=== PATIENT | female | born 1965 | race Caucasian/White ===

== ENCOUNTER 2018-06-08 14:22 | Emergency (ER) | payer OTHER ==
[2018-06-08] MEDS ORDERED: FAMOTIDINE 20 MG/2 ML VIAL IV ONE (15:25)
[2018-06-08] MEDS ORDERED: NA CHLORIDE 0.9% 1,000 ML ONE (15:25)
[2018-06-08] MEDS ORDERED: ONDANSETRON 4 MG/2 ML VIAL ONE (15:25)
[2018-06-08 15:33] LABS: Absolute Lymphocytes (CBC) 1.9 K/uL (0.7-4.9); Absolute Monocytes 0.9 K/uL (0.1-1.3); Absolute Neutrophil 17.7 K/uL (1.8-8.0); Basophils % 0.3 % (0-1.3); Eosinophils % 0.1 % (0-4.4); Hematocrit 41.2 % (36.0-45.0); Lymphocytes % 9.3 % (15.3-44.8); MCH 28.3 pg (27.0-35.0); MCV 86.5 fL (80-100); MPV 8.3 fL (7.6-11.3); Monocytes % 4.2 % (3.3-12.3); RBC Red Blood Cell Count 4.77 M/uL (3.86-4.86)
[2018-06-08 15:45] LABS: Albumin 3.8 g/dL (3.4-5.0); Bilirubin Direct 0.1 mg/dL (0-0.2); Bilirubin Total 0.4 mg/dL (0.2-1.0); Magnesium 2.4 mg/dL (1.8-2.4); Potassium 3.7 mmol/L (3.5-5.1); Protein, Total 7.7 g/dL (6.4-8.2)
[2018-06-08 16:15] LABS: Urine Bacteria >50 /HPF (<20); Urine Culture Reflex Order REFLEXED; Urine Mucus 2+ /HPF (NONE SEEN)
[2018-06-08 16:16] LABS: Urine Blood 1+ (NEG); Urine Glucose NEGATIVE (NEG); Urine Protein NEGATIVE (NEG); Urine Specific Gravity 1.015 (1.005-1.030); Urine pH 7.5 (5.0-7.0)
[2018-06-08 16:56] LABS: Blood Morphology Comment NOT SEEN (NOT SEEN); Platelet Estimate ADEQ
[2018-06-08] MEDS ORDERED: CEFTRIAXONE/SWI 1gm 2 GM/20 ML SYR ONE (17:11)
--- NOTE | 2018-06-08 18:00 | RAD REPORT ---
EXAM DESCRIPTION: CT - Abdomen Pelvis Wo Contrast - 06/08/2018 5:49 pm CLINICAL HISTORY: Abdominal pain. diarrhea. colitis;Abd pain COMPARISON: No comparisons TECHNIQUE: CT imaging of the abdomen and pelvis was performed without contrast. Solid organ, bowel a nd vascular assessment is limited due to lack of IV and oral contrast. All CT scans are performed using dose optimization technique as appropriate and may include automated exposure control or mA/KV adjustment according to patient size. FINDINGS: The lower lung rollins are clear. The liver, spleen, pancreas, adrenal glands and right kidney are within normal limits for a limited n on-contrast examination.4 mm calculus is present inferior left kidney without hydronephrosis. No bowel obstruction, free air, free fluid or abscess. Scattered colonic diverticulosis. The appendix is normal. The osseous structures are within normal limits.4 cm left ovarian cyst is seen. IMPRESSION: Small nonobstructing 4 mm inferior left renal calculus. Otherwise, negative study for ac brenda or worrisome abnormality. A limited non-contrast examination was performed as detailed.
--- NOTE | 2018-06-08 18:38 | ER ---
Nurse's Notes [facility] Name: Wendi Rojas Age: 52 yrs Sex: Female : 1965 Arrival Date: 06/08/2018 Time: 14:25 Bed 17 Private MD: Grant Mcclure T Diagnosis: Dizziness;Acute Vomiting and Diarrhea;Acute UTI Presentation: 06/08 14:28 Presenting complaint: Patient states: diarrhea since Mon, dizziness and vomiting sv started today at 0600. Pt saw Dr Mcclure and was dx w/ UTI, sent home with Bactrim and Promethazine. Transition of care: patient was not received from another setting of care. Onset of symptoms was June 06, 2018. Care prior to arrival: None. 14:28 Method Of Arrival: Wheelchair sv 14:28 Acuity: LOAN 3 sv Historical: - Allergies: 14:39 PENICILLINS; sv - PMHx: 14:39 Hypertension; Arthritis; sv - PSHx: 14:39 left knee; Tonsillectomy; sv - Immunization history:: Adult Immunizations up to date. - Social history:: Smoking status: Patient/guardian denies using tobacco. - Ebola Screening: : No symptoms or risks identified at this time. - Family history:: not pertinent. - Hospitalizations: : No recent hospitalization is reported. Screenin:32 Abuse screen: Denies threats or abuse. Nutritional screening: No deficits noted. la1 Tuberculosis screening: No symptoms or risk factors identified. Fall Risk None identified. Assessment: 15:33 General: Appears in no apparent distress. Behavior is calm, cooperative. Pain: Denies la1 pain. Neuro: Level of Consciousness is awake, alert, obeys commands, Oriented to person, place, time, situation, Open Tenter Operator are equal bilaterally Moves all extremities. Full function Gait is steady, Speech is normal, Facial symmetry appears normal, Pupils are PERRLA. Cardiovascular: Capillary refill < 3 seconds Patient's skin is warm and dry. Respiratory: Airway is patent Respiratory effort is even, unlabored, Respiratory pattern is regular, symmetrical, Breath sounds are clear bilaterally. GI: Reports nausea, vomiting. : No signs and/or symptoms were reported regarding the genitourinary system. 17:00 Reassessment: Patient appears in no apparent distress at this time. Patient and/or jl7 family updated on plan of care and expected duration. Pain level reassessed. Patient is alert, oriented x 3, equal unlabored respirations, skin warm/dry/pink. 18:00 Reassessment: Patient and/or family updated on plan of care and expected duration. Pain jl7 level reassessed. Patient is alert, oriented x 3, equal unlabored respirations, skin warm/dry/pink. 19:15 Reassessment: Upon discharge, pt sitting upright in bed, fully AA\T\Ox4, reports sr5 dizziness persists with position change. Nausea greatly improved. Equal unlabored resp, room air, skin warm/dry/nc, SR on monitor, IV site dc'd intact, bandage applied. steady gait to for dc. Patient educated on safety concerning ambulation and medication admin. Family at bedside. Vital Signs: 14:39 BP 178 / 105; Pulse 90; Resp 20; Temp 98.6; Pulse Ox 97% ; Weight 99.79 kg; Height 5 sv ft. 4 in. (162.56 cm); Pain 0/10; 16:11 BP 139 / 105; Pulse 91; Resp 16; Pulse Ox 100% on R/A; la1 17:56 BP 138 / 77; Pulse 90; Resp 20; Pulse Ox 100% on R/A; mh5 19:00 BP 134 / 76; Pulse 87; Resp 16; Temp 98.6; Pulse Ox 98% on R/A; Pain 0/10; sr5 14:39 Body Mass Index 37.76 (99.79 kg, 162.56 cm) sv Vitals: 19:00 Cardiac Rhythm Assessment Regular Sinus rhythm. sr5 ED Course: 14:25 Patient arrived in ED. sb2 14:25 Grant Mcclure MD is Private Physician. sb2 14:28 Arm band placed on right wrist. Patient placed in an exam room, on a stretcher. sv 14:32 Anish Kitchen RN is Primary Nurse. la1 14:37 Suleiman Guadalupe MD is Attending Physician. wa 14:38 Triage completed. sv 14:46 EKG done, by ag equipment field service technician. reviewed by Suleiman Guadalupe MD. sm3 15:32 No provider procedures requiring assistance completed. Inserted saline lock: 22 gauge la1 in left antecubital area, using aseptic technique. Blood collected. 15:33 Bed in low position. Call light in reach. Side rails up X 1. Pulse ox on. NIBP on. la1 15:57 Notified ED physician of a critical lab result(s). WBC-20.6. la1 16:00 Urine --Ancillary (enter results) Sent. 5 16:00 Urine Dipstick--Ancillary (enter results) Sent. mh5 16:00 Urine Microscopic Only Sent. mh5 17:[address] mw3 17:49 CT Abd/Pelvis - Without Cont In Process Unspecified. EDMS 19:00 IV discontinued, intact, bleeding controlled, No redness/swelling at site. Pressure sr5 dressing applied. Administered Medications: 15:30 Drug: NS 0.9% 1000 ml Route: IV; Rate: 1000 ml; Site: left antecubital; la1 16:11 Follow up: IV Status: Completed infusion la1 15:31 Drug: Pepcid 20 mg Route: IVP; Site: left antecubital; la1 16:11 Follow up: Response: No adverse reaction la1 15:31 Drug: Zofran 4 mg Route: IVP; Site: left antecubital; la1 16:11 Follow up: Response: No adverse reaction la1 18:22 Drug: Rocephin - (cefTRIAXone) 2 grams {Note: Administered IVP per protocol.} Route: jl7 IVPB; Infused Over: 30 mins; Site: left antecubital; 18:28 Follow up: IV Status: Completed infusion jl7 Outcome: 18:37 Discharge ordered by . ne 19:00 Discharged to home via wheelchair, with family. sr5 19:00 Condition: good 19:00 Discharge instructions given to patient, Instructed on discharge instructions, follow up and referral plans. medication usage, safety practices, Demonstrated understanding of instructions, follow-up care, medications, Prescriptions given X 2. 19:14 Patient left the ED. [facility] Addendum: 06/12/2018 07:46 Addendum: Culture Results: Positive urine culture. Bacteria is resistant to, has i w intermediate sensitivity, or is not tested against prescribed antibiotics. Report given to WHIT for further evaluation and then to fire extinguisher technician for follow up with patient. Phone call Attempt #1 pt still having urinary symptoms, has follow up appt with Dr. Mcclure on Monday Prescription called-in to pharmacy of choice. Macrobid 100 mg PO BID X 10 days, #20, no refills, called in to [facility]. Signatures: Dispatcher [employer] Samaria Quezada, RN RN Belinda Trammell RN RN iw Anish Kitchen RN RN la1 Americo Browning RN RN sr5 Catrachita Bull 5 Kun Jamil RN RN jl7 Suleiman Guadalupe MD MD wa Billeau, Sheri sb2 Lindsay Michelle 3 Saskia Bocanegra 3 Corrections: (The following items were deleted from the chart) 12:02 07:46 Addendum: Culture Results: Positive urine culture. No further action required. iw Bacteria sensitive to prescribed antibiotic. iw
--- NOTE | 2018-06-08 18:38 | EDPHYS ---
Physician Documentation [facility] Name: Wendi Rojas Age: 52 yrs Sex: Female : 1965 Arrival Date: 06/08/2018 Time: 14:25 Bed 17 Private MD: Grant Mcclure T ED Physician Suleiman Guadalupe HPI: 06/08 18:24 This 52 yrs old Female presents to ER via Wheelchair with complaints of wa Dizziness. 18:24 The patient presents to the emergency department with nausea, vomiting, diarrhea. wa Onset: The symptoms/episode began/occurred 3 day(s) ago, diagnosed with UTI. on bactrim DS. states dizziness today. described as room spinning as well as feeling lightheaded. Possible causes: unknown. The symptoms are aggravated by nothing. The symptoms are alleviated by phenergan, partially. called in today by her PMD. Associated signs and symptoms: Pertinent positives: diarrhea, nausea, vomiting, Pertinent negatives: abdominal pain, fever, hematuria, vaginal discharge. Severity of symptoms: At their worst the symptoms were moderate in the emergency department the symptoms have improved moderately. The patient has not experienced similar symptoms in the past. The patient has been recently seen by a physician: the patient's primary care provider. Historical: - Allergies: 14:39 PENICILLINS; sv - PMHx: 14:39 Hypertension; Arthritis; sv - PSHx: 14:39 left knee; Tonsillectomy; sv - Immunization history:: Adult Immunizations up to date. - Social history:: Smoking status: Patient/guardian denies using tobacco. - Ebola Screening: : No symptoms or risks identified at this time. - Family history:: not pertinent. - Hospitalizations: : No recent hospitalization is reported. ROS: 18:28 Constitutional: Negative for fever, chills, and weight loss, Eyes: Negative for injury, wa pain, redness, and discharge, ENT: Negative for injury, pain, and discharge, Neck: Negative for injury, pain, and swelling, Cardiovascular: Negative for chest pain, palpitations, and edema, Respiratory: Negative for shortness of breath, cough, wheezing, and pleuritic chest pain, Abdomen/GI: Negative for abdominal pain, nausea, vomiting, diarrhea, and constipation, Back: Negative for injury and pain, : Negative for injury, bleeding, discharge, and swelling, MS/Extremity: Negative for injury and deformity, Skin: Negative for injury, rash, and discoloration, Psych: Negative for depression, anxiety, suicide ideation, homicidal ideation, and hallucinations. 18:28 Abdomen/GI: Positive for nausea and vomiting, vomiting, diarrhea, Negative for abdominal pain. 18:28 Neuro: Positive for dizziness, Negative for altered mental status, loss of consciousness, syncope. 18:28 All other systems are negative. Exam: 18:30 Constitutional: This is a well developed, well nourished patient who is awake, alert, wa and in no acute distress. Head/Face: Normocephalic, atraumatic. Eyes: Pupils equal round and reactive to light, extra-ocular motions intact. Lids and lashes normal. Conjunctiva and sclera are non-icteric and not injected. Cornea within normal limits. Periorbital areas with no swelling, redness, or edema. ENT: Nares patent. No nasal discharge, no septal abnormalities noted. Tympanic membranes are normal and external auditory canals are clear. Oropharynx with no redness, swelling, or masses, exudates, or evidence of obstruction, uvula midline. Mucous membranes moist. Neck: Trachea midline, no thyromegaly or masses palpated, and no cervical lymphadenopathy. Supple, full range of motion without nuchal rigidity, or vertebral point tenderness. No Meningismus. Cardiovascular: Regular rate and rhythm with a normal S1 and S2. No gallops, murmurs, or rubs. Normal PMI, no JVD. No pulse deficits. Respiratory: Lungs have equal breath sounds bilaterally, clear to auscultation and percussion. No rales, rhonchi or wheezes noted. No increased work of breathing, no retractions or nasal flaring. Abdomen/GI: Soft, non-tender, with normal bowel sounds. No distension or tympany. No guarding or rebound. No evidence of tenderness throughout. Back: No spinal tenderness. No costovertebral tenderness. Full range of motion. Skin: Warm, dry with normal turgor. Normal color with no rashes, no lesions, and no evidence of cellulitis. MS/ Extremity: Pulses equal, no cyanosis. Neurovascular intact. Full, normal range of motion. Psych: Awake, alert, with orientation to person, place and time. Behavior, mood, and affect are within normal limits. 18:30 Neuro: Orientation: is normal, Mentation: is normal, Memory: is normal, Cranial nerves: grossly normal, Cerebellar function: is grossly normal, is grossly normal based on the patient's age, normal finger to nose testing, heel to grant testing is normal, able to perform alternating rapid hand movements. Vital Signs: 14:39 BP 178 / 105; Pulse 90; Resp 20; Temp 98.6; Pulse Ox 97% ; Weight 99.79 kg; Height 5 sv ft. 4 in. (162.56 cm); Pain 0/10; 16:11 BP 139 / 105; Pulse 91; Resp 16; Pulse Ox 100% on R/A; la1 17:56 BP 138 / 77; Pulse 90; Resp 20; Pulse Ox 100% on R/A; mh5 19:00 BP 134 / 76; Pulse 87; Resp 16; Temp 98.6; Pulse Ox 98% on R/A; Pain 0/10; sr5 14:39 Body Mass Index 37.76 (99.79 kg, 162.56 cm) sv MDM: 14:37 Patient medically screened. ks 18:31 Differential diagnosis: viral gastroenteritis, gastroenteritis, UTI? vertigo? no wa nystagmus. nml cerebellar exam. Data reviewed: vital signs, nurses notes, lab test result(s), radiologic studies. Test interpretation: by ED physician or midlevel provider: UA noted for pyuria consistent with UTI. noted leukocytosis. Response to treatment: the patient's symptoms have markedly improved after treatment. ED course: abx given. pt offered admit for obs. stated felt much better and wanted to go home. will d/c with meds and close f/u. ambulatory without deficit at time of d/c. 06/08 15:10 Order name: Basic Metabolic Panel; Complete Time: 17: ks 06/08 15:10 Order name: CBC with Diff; Complete Time: : ks 06/08 15:10 Order name: LFT's; Complete Time: :06/08 15:10 Order name: Magnesium; Complete Time: 17: ks 06/08 15:10 Order name: Urine Microscopic Only; Complete Time: 17: ks 06/08 15:43 Order name: Urine Dipstick--Ancillary (enter results); Complete Time: 17: mb4 06/08 15:43 Order name: Urine --Ancillary (enter results); Complete Time: 17:04 mb4 06/08 15:56 Order name: Manual Differential; Complete Time: 17:03 EDMS 06/08 16:16 Order name: Urine Culture EDMN 06/08 17:36 Order name: CT Abd/Pelvis - Without Cont; Complete Time: 18:16 ks 06/08 15:10 Order name: Urine Test (obtain specimen); Complete Time: 15: ks 06/08 15:10 Order name: Cardiac monitoring; Complete Time: 15: ks 06/08 15:10 Order name: IV Saline Lock; Complete Time: 15:06/08 15:10 Order name: Labs collected and sent; Complete Time: ks 06/08 15:10 Order name: O2 Sat Monitoring; Complete Time: ks 06/08 15:10 Order name: Urine Dipstick-Ancillary (obtain specimen); Complete Time: : ks 06/08 17:30 Order name: EKG Electrocardiogram EDMS Administered Medications: 15:30 Drug: NS 0.9% 1000 ml Route: IV; Rate: 1000 ml; Site: left antecubital; la1 16:11 Follow up: IV Status: Completed infusion la1 15:31 Drug: Pepcid 20 mg Route: IVP; Site: left antecubital; la1 16:11 Follow up: Response: No adverse reaction la1 15:31 Drug: Zofran 4 mg Route: IVP; Site: left antecubital; la1 16:11 Follow up: Response: No adverse reaction la1 18:22 Drug: Rocephin - (cefTRIAXone) 2 grams {Note: Administered IVP per protocol.} Route: jl7 IVPB; Infused Over: 30 mins; Site: left antecubital; 18:28 Follow up: IV Status: Completed infusion jl7 Disposition: 06/08/18 18:37 Discharged to Home. Impression: Dizziness, Acute Vomiting and Diarrhea, Acute UTI. - Condition is Stable. - Discharge Instructions: Nausea and Vomiting, Adult, [id number], Urinary Tract Infection, Adult, [id number], Diarrhea, Adult, [id number], Dizziness, [id number]. - Prescriptions for Keflex 500 mg Oral Capsule - take 1 capsule by ORAL route every 8 hours for 7 days; 21 capsule. Zofran 4 mg Oral Tablet - take 1 tablet by ORAL route every 12 hours As needed; 20 tablet. - Medication Reconciliation Form, Thank You Letter, Antibiotic Education, Prescription Opioid Use form. - Follow up: Private Physician; When: 1 - 2 days; Reason: Re-evaluation by your physician. - Problem is new. - Symptoms have improved. - Notes: take the medicines as prescribed. return here for worsening concerns immediately. otherwise see your doctor within the next 72 hours for further evaluation to ensure proper resolution of your illness Signatures: Dispatcher [employer] EDMS Samaria Zaldivar, CAROLINA RN Anish Kitchen RN RN la1 Catrachita Bull 5 Kun Jamil RN RN jl7 Suleiman Guadalupe MD MD wa Corrections: (The following items were deleted from the chart) 19:14 18:37 06/08/2018 18:37 Discharged to Home. Impression: Dizziness; Acute Vomiting and mh5 Diarrhea; Acute UTI. Condition is Stable. Forms are Medication Reconciliation Form, Thank You Letter, Antibiotic Education, Prescription Opioid Use. Follow up: Private Physician; When: 1 - 2 days; Reason: Re-evaluation by your physician. Problem is new. Symptoms have improved. wa
--- NOTE | 2018-06-09 08:34 | EKG ---
Test Date: 2018-06-08 Test Time: 14:37:58 Scheduler Maintenance: COLTON MEASUREMENT RESULTS: Intervals: Rate: 81 VT: 114 QRSD: 104 QT: 380 QTc: 441 Mason: P: VT: 114 QRS: 120 T: 134 INTERPRETIVE STATEMENTS: Normal sinus rhythm Left posterior fascicular block Abnormal ECG No previous ECG available for comparison Electronically Signed On 06-09-18 08:33:45 CDT by Andrew Velazco
== END 2018-06-08 19:14 | disposition home or self-care (01) ==
LOC: ER 14:22
DX: N39.0 Urinary tract infection, site not specified (principal); R42 Dizziness and giddiness; R19.7 Diarrhea, unspecified; R11.2 Nausea with vomiting, unspecified; Z88.0 Allergy status to penicillin; I10 Essential (primary) hypertension; M19.90 Unspecified osteoarthritis, unspecified site
CPT/HCPCS: 36415; 74176; 80048; 80076; 81003; 81015; 81025; 83735; 85025; 87077; 87086; 87088; 87186; 93005; 96361; 96374; 96375; 99285; J0696; J2405; J7030

== ENCOUNTER 2024-01-23 15:11 | Emergency (ER) | payer BC, OTHER ==
[2024-01-23] MEDS ORDERED: ALBUTEROL 2.5 MG/3 ML NEB SOL ONE (15:43)
[2024-01-23] MEDS ORDERED: IPRATROPIUM BROM 0.5MG/2.5ML ONE (15:43)
--- NOTE | 2024-01-23 16:05 | RAD REPORT ---
EXAM DESCRIPTION: RAD - Chest Single View - 01/23/2024 3:58 pm CLINICAL HISTORY: Dyspnea;Chest pain Chest pain. COMPARISON: <Comparisons> FINDINGS: Portable technique limits examination quality. The lungs are grossly clear. The heart is normal in size. No displaced fractures. IMPRESSION: No acute intrathoracic process suspected.
[2024-01-23] MEDS ORDERED: ONDANSETRON 4 MG (ODT) TAB ONE (16:15)
[2024-01-23] MEDS ORDERED: NA CHLORIDE 0.9% 500 ML ONE (17:09)
[2024-01-23 17:36] LABS: Absolute Basophils 0.1 K/uL (0-0.5); Absolute Lymphocytes (CBC) 3.3 K/uL (0.7-4.9); Absolute Monocytes 0.9 K/uL (0.1-1.3); Absolute Neutrophil 9.2 K/uL (1.8-8.0); Basophils % 0.4 % (0-1.3); Eosinophils % 0.2 % (0-4.4); Hematocrit 43.3 % (36.0-45.0); Hemoglobin 14.6 g/dL (12.0-15.0); Lymphocytes % 24.4 % (15.3-44.8); MCH 29.4 pg (27.0-35.0); MCHC 33.6 g/dL (32.0-36.0); MCV 87.5 fL (80-100); MPV 8.3 fL (7.6-11.3); Monocytes % 6.6 % (3.3-12.3); Neutrophils % 68.4 % (41.7-73.7); Platelets 323 thou/uL (152-406); RBC Red Blood Cell Count 4.95 M/uL (3.86-4.86); Red Cell Distribution Width 13.3 % (12.1-15.2)
[2024-01-23 17:44] LABS: Anion Gap 9.3 mEq/L (5.0-15.0); Potassium 3.3 mEq/L (3.5-5.1)
[2024-01-23 18:21] LABS: Specific Gravity 1.017 (1.005-1.030); Sqamous Epithelial <5 /HPF (None Seen); Urine Bacteria None Seen /HPF (<20); Urine Bilirubin NEGATIVE (Negative); Urine Blood Trace (Negative); Urine Clarity Turbid (Clear); Urine Color Light-Yellow (Yellow); Urine Crystals Unidentified Few /HPF (None Seen); Urine Culture Reflex Order NOT NEEDED; Urine Glucose NEGATIVE (Negative); Urine Ketones NEGATIVE (Negative); Urine Microscopic Reflex YN ORDER UMIC; Urine Mucus Slight /HPF (None Seen); Urine Nitrite NEGATIVE (Negative); Urine Protein TRACE (Negative); Urine RBC <5 /HPF (None Seen); Urine Urobilinogen Normal (Normal); Urine WBC <5 /HPF (<5); Urine pH 6.5 (5.0-7.0)
[2024-01-23] MEDS ORDERED: ONDANSETRON 4 MG/2 ML VIAL ONE (18:21)
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
[2024-01-23] MEDS ORDERED: POTASSIUM CL SA 10 MEQ TAB PO ONE (19:22)
[2024-01-23] MEDS ORDERED: MAGNES/ALUMIN/SIMET 30ML UCUP ONE (19:22)
[2024-01-23] MEDS ORDERED: LIDOCAINE VISCOUS 2% 10ML ORAL SOLN ONE (19:23)
[2024-01-23 21:13] VITALS: BP 152/94; TEMP 98.5; O2SAT 98
--- NOTE | 2024-01-24 12:35 | EKG ---
Test Date: 2024-01-23 Test Time: 16:07:03 Mica Inspector: JOHNNY MEASUREMENT RESULTS: Intervals: Rate: 74 NV: 116 QRSD: 98 QT: 432 QTc: 479 [place]: P: 21 NV: 116 QRS: 56 T: 73 INTERPRETIVE STATEMENTS: Normal sinus rhythm Normal ECG Compared to ECG 06/08/2018 14:37:58 Left posterior fascicular block no longer present Electronically Signed On 01-24-24 12:33:12 CDT by Damaso Oliva
== END 2024-01-23 20:00 | disposition home or self-care (01) ==
LOC: ER 15:11
DX: R06.00 Dyspnea, unspecified (principal); Z77.098 Contact with and (suspected) exposure to other hazardous, chiefly nonmedicinal, chemicals; I10 Essential (primary) hypertension; Z88.0 Allergy status to penicillin
CPT/HCPCS: 93005; 85025; 81001; 80048; 36415; 71045; 96374; 99284; Q0162; J7613; J7644; J2405; J7040